=== PATIENT | female | born 1940 | race Caucasian/White ===

== ENCOUNTER 2022-12-09 08:36 | Day surgery (SDC) | payer MEDICARE, OTHER ==
[2022-12-08 14:44] LABS: BASOPHILS % (AUTO) 0.5 % (0-1); EOSINOPHILS # (AUTO) 0.1 X10'3 (0-0.9); EOSINOPHILS % (AUTO) 1.6 % (0-6); HEMATOCRIT 43.5 % (35.0-45.0); HEMOGLOBIN 14.9 g/dl (12.0-16.0); LYMPHOCYTES # (AUTO) 2.3 X10'3 (1.1-4.8); LYMPHOCYTES % (AUTO) 26.1 % (21-51); MEAN CORPUSCULAR HEMOGLOBIN 28.5 PG (27.0-31.0); MEAN CORPUSCULAR HGB CONC 34.2 g/dL (33.0-36.5); MEAN CORPUSCULAR VOLUME 83.4 FL (78-98); MONOCYTES # (AUTO) 0.4 X10'3 (0-0.9); NEUTROPHILS # (AUTO) 5.8 X10'3 (1.8-7.7); NEUTROPHILS % (AUTO) 66.8 % (42-75); PLATELET COUNT 168 X10'3 (140-440); RED BLOOD COUNT 5.22 X10'6 (4.20-5.60); RED CELL DISTRIBUTION WIDTH 14.1 % (11.5-14.5); WHITE BLOOD COUNT 8.7 X10'3 (4.5-11.0)
[2022-12-08 14:52] LABS: ALBUMIN 3.9 G/DL (3.4-5.0); ANION GAP 8 (8-16); BLOOD UREA NITROGEN 17 MG/DL (7-18); BUN/CREATININE RATIO 14.5 (6.6-38.0); CALCIUM 9.5 MG/DL (8.5-10.1); CHLORIDE 100 MMOL/L (99-107); CREATININE 1.17 MG/DL (0.40-0.90); GLUCOSE 439 MG/DL (70-104); SODIUM 134 MMOL/L (135-145); TOTAL CARBON DIOXIDE 26.2 MMOL/L (24-32); eGFR 45 ML/MIN
[2022-12-09] VITALS (11 sets, daily range): BP systolic 116–161; BP diastolic 44–80
[~2022-12-09] VITALS: Ht 160 cm; Wt 86.2 kg
[~2022-12-09 08:36] MED LIST: ACET-2615 PO; LACT1CAP60 PO; PANT40TA39 PO; PIOG30TA2 PO; SITA100T15 PO
[2022-12-09] MEDS ORDERED: diphenhydrAMINE 25mg capsule PO PRN (08:55)
[2022-12-09] MEDS ORDERED: normal saline 1,000 ML IV SCH (08:55)
[2022-12-09] MEDS ORDERED: LORazepam 0.5 MG tablet PO PRN (08:55)
[2022-12-09] MEDS ORDERED: DULA3PEN (09:07)
[2022-12-09] MEDS ORDERED: ASCO100T12 PO (09:07)
[2022-12-09] MEDS ORDERED: RED600TA PO (09:07)
[2022-12-09] MEDS ORDERED: CHOL50004 PO (09:07)
[2022-12-09] MEDS ORDERED: LISI20TA28 PO (09:07)
[2022-12-09] MEDS ORDERED: OMEG1CAP46 PO (09:07)
[2022-12-09] MEDS ORDERED: verapamil 2.5 mg/ml inj IV ONE (10:23)
[2022-12-09] MEDS ORDERED: midazolam 1 mg/ML 2ml injection ONE (10:23)
[2022-12-09] MEDS ORDERED: nitroGLYCERIN-Tridil 50MG/D5W 250 ML IV ONE (10:23)
[2022-12-09] MEDS ORDERED: LIDOcaine 1% (10mg/ml) 2ml vial ONE (10:24)
[2022-12-09] MEDS ORDERED: iohexol 350 MG/ML 50ML vial IV ONE (10:24)
[2022-12-09] MEDS ORDERED: heparin 1,000unit/ml 10ml vial 10 ML ONE (10:24)
[2022-12-09] MEDS ORDERED: iohexol 350MG/ML 100ml bottle IV ONE (10:24)
[2022-12-09] MEDS ORDERED: fentaNYL/PF 50MCG/1 ML 2ML syringe ONE (10:24)
[2022-12-09] MEDS ORDERED: HYDROcodone/acetaminophen 10/325mg tab PO PRN (12:00)
[2022-12-09] MEDS ORDERED: HYDROcodone/acetaminophen 5mg/325mg tablet PO PRN (12:00)
[2022-12-09] MEDS ORDERED: normal saline 1000ml 1,000 ML IV SCH (12:00)
== END 2022-12-09 17:00 | disposition home or self-care (01) ==
LOC: SSTAY O 08:36
PROVIDERS: ATTEND Internal Medicine Cardiovascular Disease
DX: R07.89 Other chest pain (principal); R53.83 Other fatigue; R06.02 Shortness of breath; I25.10 Atherosclerotic heart disease of native coronary artery without angina pectoris; I10 Essential (primary) hypertension; E78.5 Hyperlipidemia, unspecified; E66.9 Obesity, unspecified; Z68.34 Body mass index [BMI] 34.0-34.9, adult; E11.9 Type 2 diabetes mellitus without complications; M19.90 Unspecified osteoarthritis, unspecified site; Z79.899 Other long term (current) drug therapy; Z86.73 Personal history of transient ischemic attack (TIA), and cerebral infarction without residual deficits; Z86.19 Personal history of other infectious and parasitic diseases; Z90.710 Acquired absence of both cervix and uterus; Z96.652 Presence of left artificial knee joint; Z98.890 Other specified postprocedural states; Z87.891 Personal history of nicotine dependence; Z72.89 Other problems related to lifestyle; Z88.0 Allergy status to penicillin; Z88.5 Allergy status to narcotic agent; Z88.8 Allergy status to other drugs, medicaments and biological substances
CPT/HCPCS: 36415; 80048; 82948; 85025; 85610; 93005; 93458; 99152; 99153; A6258; C1769; C1894; J1644; J2250; J3010; J3490; J7030; Q0163; Q9967; A6402; C1725

== ENCOUNTER 2025-04-28 13:40 | Emergency (ER) | payer MEDICARE, OTHER ==
[~2025-04-28] VITALS: Ht 160 cm; Wt 54.1 kg
[~2025-04-28 13:40] MED LIST changes: -ACET-2615 PO; +ASCO100T12 PO; +CHOL50004 PO; +DULA3PEN; -LACT1CAP60 PO; +LISI20TA28 PO; +OMEG1CAP46 PO; -PANT40TA39 PO; -PIOG30TA2 PO; +RED600TA PO; -SITA100T15 PO
[2025-04-28 13:43] VITALS: TEMP 97.9
--- NOTE | 2025-04-28 13:53 | ELECTROCARDIOGRAPH REPORT ---
[facility] Test Date: 2025-04-28 Test Time: 13:50:56 Pat Name: VICKY BECKER Department: [facility] Patient ID: [id number] Room: Gender: F [employer]: : 1940 Requested By: SANTINO HUNT Order Number: [id number] Reading MD: Dr. Yoseph Palacios Measurements Intervals [place] Rate: 82 P: 67 MT: 175 QRS: -18 QRSD: 84 T: 74 QT: 364 QTc: 425 Interpretive Statements Sinus rhythm Borderline left axis deviation Abnormal R-wave progression, early transition Consider anterior infarct Baseline wander in lead(s) II,aVR,aVF,V3,V4,V5,V6 Electronically Signed On 05-02-2025 20:04:[address] Yoseph Palacios Please click the below link to view image of tracing.
--- NOTE | 2025-04-28 15:02 | Physician Documentation ---
History of Present Illness ~ Chief Complaint: Dizziness Stated Complaint: CHEMICAL EXPOSURE IN EYE Time Seen by MD: 14:48 Primary Medical Doctor: Dr. Carlin Source: patient Mode of Arrival: POV Exam Limitations: no limitations HPI 85-year-old female concerned due to a headache and mild dizziness has experienced since after being covered in a weed killer she was trying to reach and get off the top shelf at a store when the lid and safety film were off of the bottle it ended up on top of her head and on her eyes. Patient was rushed into the bathroom to clean it off of her hair and head as well as flushing or eyes out for 10 minutes in the store. The weed killer was bright blue which she states there was some blue in her hair so when she went from the store to home she took a shower and got the rest of her head. Patient's saw her schedule clerk the day that it occurred and the next day. Patient was cleared by Ophthalmology stating that her eyes looked good. Patient has intermittent bouts of dizziness when standing and with head movement and a slight headache since she had weed killer exposure. When patient sits still she denies any dizziness. Patient states it started after leaning over and cleaning her eyes out for 10 minutes. Patient states when her eyes are closed she is not dizzy. Patient denies head injury or falls. Medication Reconciliation Allergies: Coded Allergies: Sulfa (Sulfonamide Antibiotics) (Verified Allergy, 09/13/13) morphine (Verified Allergy, 09/13/13) naproxen (Verified Allergy, 09/13/13) Scheduled Ascorbic Acid (Vitamin C), 1 TAB PO DAILY, (Reported) Cholecalciferol (Vitamin D3) (Vitamin D3), 1 CAP PO DAILY, (Reported) Lisinopril (Lisinopril), 0.5 TAB PO DAILY, (Reported) Meclizine HCl (Meclizine HCl), 1 TAB PO Q8H [place]-3 Fatty Acids/Fish Oil ([place] 3 1,000 mg Softgel), 2 CAP PO DAILY, (Reported) Red Yeast Rice (Red Yeast Rice), 600 MG PO DAILY, (Reported) Miscellaneous Medications Dulaglutide (Trulicity), (Reported) Past Medical History Past Medical History: No Pertinent History, Diabetes Past Surgical History: noncontributory Smoking Status: Never smoker Alcohol Use: None Drug Use: none Lives In: Home Occupation: retired Review of Systems All Other Systems at this time: Reviewed and Negative Neurological: Reports: see HPI Physical Exam Vital Signs: RN Vital Signs have been reviewed: Yes, Temperature: 97.9, Source: Temporal, Heart Rate: 81, Respiratory Rate: 19, BP: 164/77, Pulse Oximetry: 99, Weight: 54.100 Oxygen Flow Rate: 0 General Appearance: alert, WD/WN, no apparent distress Neck: non-tender, full range of motion Head: normal; No: tender Pupils/EOM/Fundus: PERRLA Respiratory: lungs clear, normal breath sounds, no respiratory distress Chest: no accessory muscle use Cardiovascular: regular rate, rhythm Skin: warm/dry, normal color Orientation / Memory / CN: oriented x3, president ceo & founder II-XII nml as tested Coordination / Gait: normal gait Coordination / Gait HINTS exam negative Motor / Sensory: no motor deficit, no sensory deficit, no pronator drift Cerebellar Function: No: tremor Psych: appropriate Progress Results/Orders Results/Orders Orders - SHANNON NEVILLE [employer] Gait Test (04/28/25 ) Completed Orders - SHANNON [employer]EV[employer]LE [employer] Cbc/Diff (04/28/25 14:51) MG (04/28/25 14:51) Normal Saline 1000ml (0.9% Sodium Chlori (04/28/25 14:55) BMP (04/28/25 14:51) Ua W/Microscopic, Cult If Ind (04/28/25 15:34) Meclizine Tablets (Antivert Tablet) (04/28/25 17:50) Medications Received in ER Medications (Trade) Dose Ordered Sig/Evi Route PRN Reason Start Time Stop Time Status Last Admin Dose Admin (0.9% sodium chloride (NS) 1000ml IV soln) 1,000 ml ONCE ONCE IVB 04/28/25 14:55 04/28/25 14:58 DC 04/28/25 15:50 1,000 ML Vital Signs 04/28/25 04/28/25 04/28/25 04/28/25 13:43 14:24 14:54 15:51 Temp 97.9 Pulse 83 81 81 79 Resp 16 12 19 18 B/P (MAP) 190/68 164/77 (106) 164/77 (106) 175/83 (113) Pulse Ox 100 100 99 100 O2 Flow Rate 0 Laboratory Tests Test 04/28/25 15:18 04/28/25 15:34 White Blood Count 8.6 Red Blood Count 5.02 Hemoglobin 14.3 Hematocrit 41.7 Mean Corpuscular Volume 83.1 Mean Corpuscular Hemoglobin 28.4 Mean Corpuscular Hemoglobin Concent 34.1 Red Cell Distribution Width 13.4 Platelet Count 156 Mean Platelet Volume 10.3 Neutrophils (%) (Auto) 64.7 Lymphocytes (%) (Auto) 27.6 Monocytes (%) (Auto) 4.8 Eosinophils (%) (Auto) 2.1 Basophils (%) (Auto) 0.8 Neutrophils # (Auto) 5.6 Lymphocytes # (Auto) 2.4 Monocytes # (Auto) 0.4 Eosinophils # (Auto) 0.2 Basophils # (Auto) 0.1 CBC Comment Sodium Level 133 L Potassium Level 4.1 Chloride Level 98 L Carbon Dioxide Level 27.7 Anion Gap 7 L Blood Urea Nitrogen 17 Creatinine 0.91 H Estimated GFR/1.73 m2 59 BUN/Creatinine Ratio 18.7 Glucose Level 376 H Calcium Level 9.2 Magnesium Level 1.9 Albumin 4.0 Chemistry Comments Urine Specimen Description Cln catch midstream Urine Color Yellow Urine Clarity Clear Urine pH 6.0 Urine Specific [place] 1.010 Urine Protein Negative Urine Glucose (UA) >=1000 H Urine Ketones Trace H Urine Occult Blood Negative Urine Nitrite Negative Urine Bilirubin Negative Urine Urobilinogen 0.2 Urine Leukocyte Esterase Negative Urine RBC None seen Urine WBC None seen Urine Squamous Epithelial Cells None seen Urine Bacteria None seen Urine Mucus Few Urine Culture Indicated Not ind Volume Urine Centrifuged 10 ml Urine Comment EKG/XRAY/CT/US/VASC/MRI EKG : Additional Comment EKG 13 50 sinus rhythm at 82 beats per minute normal axis no acute ST-T abnormalities. Medical Decision Making Findings Patient concerned due to a headache and a couple of bouts of what appears to be orthostatic hypotension or dizziness and she had been exposed to weed killer concentrate. Patient did expedite cleaning her head eyes and face but worried that she might have had some toxicity or effect from this. Patient's schedule clerk has cleared her and states that her eyes looked good. Patient had Ophthalmology that they of which was and Wednesday. No other acute concerns. Labs some fluid and orthostatic vitals as well as a UA to evaluate for further differentials to support dizziness and had it. Patient's urinalysis shows ketones and glucose no bacteria. Patient is on a weekly injectable for type 2 diabetes and takes a daily injection of insulin for diabetes. She is followed closely by her primary care provider. Patient has had a couple episodes of dizziness since having the weed killer spilled on her. Labs were unremarkable for any significant findings gait test and some fluids as she was slightly hyponatremic. Patient desires to go home. Departure Time of Disposition: 16:00 Disposition: HOME / SELF CARE / HOMELESS Impression: Primary Impression: Chemical exposure Additional Impressions: Chemical exposure of eye Dehydration Vertigo Condition: Stable Discharge Instructions: Dizziness, Vertigo Additional Instructions: See if you can get a primary care appointment sooner as we discussed your elevated blood sugar. Stay well hydrated and get up slowly to help with intermittent dizziness. Meclizine as prescribed for for vertigo take 3 times a day as in bed for dizziness and follow up with primary care it is likely you will need some physical therapy to potentially help this could be for have been caused by putting her head down and flushing your eyes or 10 minutes. Referrals: NO PRIMARY CARE PROVIDER (PCP) Prescriptions Meclizine HCl (Meclizine HCl) 12.5 Mg Tablet 1 TAB PO Q8H for dizziness for 10 Days, #30 TAB 0 Refills Prov: SHANNON NEVILLE NP 04/28/25 Education Educated: Patient Educated regarding: diagnosis, treatment, need for follow up Signature Scribe Signature: No scribe Attestation: The note accurately reflects work and decisions made by me.Shannon SOLIMAN 04/28/25 15:05 SHANNON NEVILLE NP Apr 28, 2025 15:02
[2025-04-28 15:43] LABS: LEUKOCYTE ESTERASE ,URINE NEGATIVE (Neg); NITRITES, URINE NEGATIVE (Neg); OCCULT BLOOD,URINE NEGATIVE (Neg)
[2025-04-28 15:45] LABS: MEAN PLATELET VOLUME 10.3 FL (7.4-10.4); RED CELL DISTRIBUTION WIDTH 13.4 % (11.5-14.5)
[2025-04-28 15:46] LABS: UA COLLECTION TYPE CLN CATCH MIDSTREAM
[2025-04-28 15:47] LABS: MUCUS STRANDS FEW /LPF (Neg); SQUAMOUS EPITHELIAL CELL,UR NONE SEEN /LPF (FEW)
[2025-04-28] MEDS: normal saline 1000ML IV soln IVB ONE (15:50)
[2025-04-28 15:54] LABS: CREATININE 0.91 MG/DL (0.40-0.90); TOTAL CARBON DIOXIDE 27.7 MMOL/L (24-32); eCRCL 39 ML/MIN; eGFR 59 ML/MIN
[2025-04-28] MEDS ORDERED: MECL-226 PO (17:34)
[2025-04-28 18:19] VITALS: BP 150/78; PULSE 75; RESP 14; O2SAT 99
== END 2025-04-28 18:18 | disposition home or self-care (01) ==
LOC: ER 13:40
DX: R42 Dizziness and giddiness (principal); Z77.098 Contact with and (suspected) exposure to other hazardous, chiefly nonmedicinal, chemicals; E86.0 Dehydration; F12.10 Cannabis abuse, uncomplicated; Z88.2 Allergy status to sulfonamides; Z88.5 Allergy status to narcotic agent; Z88.6 Allergy status to analgesic agent
CPT/HCPCS: 36415; 80048; 81001; 83735; 85025; 93005; 96360; 99285; J7030; J8597